=== PATIENT | male | born 1995 | race Two or more races ===

== ENCOUNTER 2020-12-05 18:00 | Emergency (ER) | payer BC ==
[~2020-12-05] VITALS: Ht 175.3 cm; Wt 109.8 kg
== END 2020-12-06 00:17 | disposition home or self-care (01) ==
LOC: ER 18:00
DX: R10.33 Periumbilical pain (principal); R10.32 Left lower quadrant pain; Z03.818 Encounter for observation for suspected exposure to other biological agents ruled out

== ENCOUNTER 2021-05-30 18:54 | Emergency (ER) | payer BC ==
[~2021-05-30] VITALS: Ht 175.3 cm; Wt 104.8 kg
[2021-05-30] MEDS ORDERED: NASAL MIST126 ML (23:36)
== END 2021-05-30 23:56 | disposition home or self-care (01) ==
LOC: ER 18:54
DX: R10.9 Unspecified abdominal pain (principal)

== ENCOUNTER 2021-08-25 04:07 | Emergency (ER) | payer OTHER ==
[~2021-08-25] VITALS: Ht 175.3 cm; Wt 106.6 kg
[~2021-08-25 04:07] MED LIST: NASAL MIST126 ML
== END 2021-08-25 10:18 | disposition home or self-care (01) ==
LOC: ER 04:07
DX: N48.9 Disorder of penis, unspecified (principal)

== ENCOUNTER 2021-11-20 12:47 | Emergency (ER) | payer OTHER ==
[~2021-11-20] VITALS: Ht 175.3 cm; Wt 98.9 kg
== END 2021-11-20 18:22 | disposition home or self-care (01) ==
LOC: ER 12:47
DX: R10.11 Right upper quadrant pain (principal)